=== PATIENT | female | born 1990 | race Caucasian/White ===

== ENCOUNTER → 2018-01-29 | Outpatient (CLI) | payer BC ==
[2018-01-29 13:41] LABS: ANION GAP 6 MEQ/L (8-16); BLOOD UREA NITROGEN 9 MG/DL (7-18); CALCIUM LEVEL 8.7 MG/DL (8.5-10.1); CARBON DIOXIDE LEVEL 28 MEQ/L (21-32); CHLORIDE LEVEL 108 MEQ/L (98-107); CHOLESTEROL LEVEL 139 MG/DL (<200); CHOLESTEROL RISK RATIO 2.278 (<5); FREE T4 0.84 NG/DL (0.76-1.46); GLOMERULAR FILTRATION RATE > 60.0 (>60); GLUCOSE, FASTING 87 MG/DL (70-100); HDL CHOLESTEROL 61 MG/DL (>40); LDL CHOLESTEROL 57.2 MG/DL (<100); NON-HDL-C 78 MG/DL; POTASSIUM SERUM 4.2 MEQ/L (3.5-5.1); SODIUM LEVEL 142 MEQ/L (136-145); TRIGLYCERIDES LEVEL 104 MG/DL (<150)
[2018-01-30 15:06] LABS: TISSUE TRANSGLUTAMINASE IgA <2 U/mL (0-3)
== END ==
LOC: M SMT 08:55
DX: L30.9 Dermatitis, unspecified (principal); Z13.1 Encounter for screening for diabetes mellitus
CPT/HCPCS: 84443

== ENCOUNTER → 2018-03-18 | Outpatient (CLI) | payer BC ==
[2018-03-18 20:13] LABS: FREE T4 1.13 NG/DL (0.76-1.46); THYROID STIMULATING HORMONE 0.796 uIU/ML (0.358-3.740)
[2018-03-18 22:26] LABS: CHLAMYDIA DNA AMPLIFICATION NEGATIVE (NEGATIVE); GC DNA AMPLIFICATION NEGATIVE (NEGATIVE)
[2018-03-19 10:53] LABS: THYROGLOBULIN ANTIBODY 292.5 U/ML (<60.0)
== END ==
LOC: M SMT 14:52
DX: Z12.4 Encounter for screening for malignant neoplasm of cervix (principal); Z11.3 Encounter for screening for infections with a predominantly sexual mode of transmission; E03.9 Hypothyroidism, unspecified
CPT/HCPCS: 84443

== ENCOUNTER → 2018-08-19 | Outpatient (REF) | payer BC | LOC: M LAB REF 16:48 | PROVIDERS: ATTEND Physician Assistant | DX: J02.9 Acute pharyngitis, unspecified (principal) ==

== ENCOUNTER → 2018-09-12 | Outpatient (CLI) | payer BC ==
--- NOTE | 2018-09-12 18:53 | REP ---
First trimester obstetric ultrasound for dating: There is an intrauterine gestational sac with a pole. heart rate is 132 beats per minute. pole crown-rump length is 0.7 cm. This corresponds to a gestational age of 6 weeks 4 days /ANIYA 05/04/2019 Gestational age by LMP is 6 weeks 5 days/ANIYA 05/03/2019. There is no subchorionic hematoma. Electronically Signed by Garrett Anderson MD 09/12/2018 06:45 P
== END ==
LOC: M RAD 16:40
PROVIDERS: ATTEND Nurse Practitioner Family
DX: Z32.01 Encounter for pregnancy test, result positive (principal); Z36.87 Encounter for antenatal screening for uncertain dates; Z3A.01 Less than 8 weeks gestation of pregnancy

== ENCOUNTER → 2019-09-08 | Outpatient (CLI) | payer BC ==
[2019-09-08 13:25] LABS: FREE T4 1.07 NG/DL (0.76-1.46); THYROID STIMULATING HORMONE 2.54 uIU/ML (0.358-3.740)
== END ==
LOC: M WUC 10:11
PROVIDERS: ATTEND Physician Assistant
DX: Z32.01 Encounter for pregnancy test, result positive (principal); Z3A.00 Weeks of gestation of pregnancy not specified; E06.3 Autoimmune thyroiditis

== ENCOUNTER → 2019-10-14 | Outpatient (REF) | payer BC ==
[2019-10-14 18:30] LABS: HEMATOCRIT 37.2 % (36.0-47.0); HEMOGLOBIN 12.6 g/dl (12.0-15.5); MEAN CORPUSCULAR HEMOGLOBIN 32.1 pg (27.0-33.0); MEAN CORPUSCULAR HGB CONC 33.9 g/dl (32.0-36.5); MEAN CORPUSCULAR VOLUME 94.9 fl (80.0-96.0); PLATELET COUNT, AUTOMATED 241 10^3/uL (150-450); RED BLOOD COUNT 3.92 10^6/uL (4.00-5.40); WHITE BLOOD COUNT 8.7 10^3/uL (4.0-10.0)
[2019-10-14 19:09] LABS: RUBELLA IgG QUALITATIVE IMMUNE (IMMUNE)
[2019-10-14 19:38] LABS: HIV 1&2 SCREEN CENTAUR NEGATIVE (NEGATIVE)
[2019-10-14 20:13] LABS: CHLAMYDIA DNA AMPLIFICATION NEGATIVE (NEGATIVE); GC DNA AMPLIFICATION NEGATIVE (NEGATIVE)
[2019-10-16 08:31] LABS: HEPATITIS B SURFACE ANTIGEN NEGATIVE (NEGATIVE)
[2019-10-16 09:00] LABS: HEPATITIS C VIRUS ABY INDEX 0.1 INDEX (<0.8)
== END ==
LOC: M PLALAB 13:54
PROVIDERS: ATTEND Advanced Practice Midwife
DX: Z34.01 Encounter for supervision of normal first pregnancy, first trimester (principal); O99.280 Endocrine, nutritional and metabolic diseases complicating pregnancy, unspecified trimester; Z3A.00 Weeks of gestation of pregnancy not specified

== ENCOUNTER → 2019-11-23 | Outpatient (REF) | payer BC | LOC: M PLALAB 11:23 | PROVIDERS: ATTEND Advanced Practice Midwife | DX: Z01.89 Encounter for other specified special examinations (principal) ==

== ENCOUNTER → 2019-12-07 | Outpatient (CLI) | payer BC ==
--- NOTE | 2019-12-08 02:48 | REP ---
Clinical: Anatomical evaluation. Comparison: None . Findings: Examination demonstrates a single live intrauterine in variable presentation. motion is identified by technologist. Placenta is noted posterior and grade I without evidence for placenta previa or abruption. Amniotic fluid volume is normal. Cervix measures 3.9 cm in length and appears closed. No evidence for nuchal cord. Gestational age by LMP 18 weeks 4 days with ANIYA 05/05/2020 . Gestational age by current measurements 17 weeks 6 days with ANIYA 05/10/2020 . FHR equals 152 beats per minute. BPD 4.0 cm 18 weeks 0 days HC 14.8 cm 17 weeks 6 days AC 11.7 cm 17 weeks 3 days FL 2.7 cm 18 weeks 2 days HL 2.7 cm 18 weeks 4 days HC/AC ratio 1.26 Estimated weight 213 grams ( 20th percentile). Anatomical assessment demonstrates normal structures including cranium, choroid plexus, cavum, cerebellum/posterior fossa, facial features, lungs, four-chamber heart/ventricular outflow tracts, diaphragm, stomach, cord insertion/three-vessel cord, kidneys/bladder, spine, and extremities. Impression: Single live intrauterine in variable presentation demonstrating appropriate estimated weight/growth. Anatomical assessment is complete and normal.
== END ==
LOC: M WHC 14:51
PROVIDERS: ATTEND Advanced Practice Midwife
DX: O99.280 Endocrine, nutritional and metabolic diseases complicating pregnancy, unspecified trimester (principal); Z3A.17 17 weeks gestation of pregnancy

== ENCOUNTER → 2019-12-11 | Outpatient (REF) | payer BC ==
[2019-12-11 17:33] LABS: FREE T4 0.94 NG/DL (0.76-1.46); THYROID STIMULATING HORMONE 4.69 uIU/ML (0.358-3.740)
== END ==
LOC: M PLALAB 14:57
PROVIDERS: ATTEND Specialist
DX: O99.280 Endocrine, nutritional and metabolic diseases complicating pregnancy, unspecified trimester (principal)

== ENCOUNTER → 2020-02-09 | Outpatient (REF) | payer BC ==
[~2020-02-09] MED LIST: ACET-683 PO; IBUP80TA PO; LEVO100T5 PO; PRENTAB9 PO
[2020-03-07 14:21] LABS: HEMATOCRIT 33.4 % (36.0-47.0); HEMOGLOBIN 10.8 g/dl (12.0-15.5); MEAN CORPUSCULAR HGB CONC 32.3 g/dl (32.0-36.5); MEAN CORPUSCULAR VOLUME 98.8 fl (80.0-96.0); PLATELET COUNT, AUTOMATED 232 10^3/uL (150-450); RED BLOOD COUNT 3.38 10^6/uL (4.00-5.40); WHITE BLOOD COUNT 10.5 10^3/uL (4.0-10.0)
[2020-03-23 13:49] LABS: FREE T4 0.91 NG/DL (0.76-1.46); THYROID STIMULATING HORMONE 3.09 uIU/ML (0.358-3.740)
== END ==
LOC: M SFHCWAGY 17:01
PROVIDERS: ATTEND Advanced Practice Midwife
DX: O99.280 Endocrine, nutritional and metabolic diseases complicating pregnancy, unspecified trimester (principal); Z3A.00 Weeks of gestation of pregnancy not specified

== ENCOUNTER → 2020-04-07 | Outpatient (REF) | payer BC | LOC: M SFHCWAGY 17:07 | PROVIDERS: ATTEND Advanced Practice Midwife | DX: O99.283 Endocrine, nutritional and metabolic diseases complicating pregnancy, third trimester (principal) ==

== ENCOUNTER → 2020-04-07 | Outpatient (REF) | payer BC ==
[2020-04-08 10:36] LABS: HIV 1&2 SCREEN CENTAUR NEGATIVE (NEGATIVE)
== END ==
LOC: M PLALAB 15:33
PROVIDERS: ATTEND Advanced Practice Midwife
DX: O99.283 Endocrine, nutritional and metabolic diseases complicating pregnancy, third trimester (principal)

== ENCOUNTER 2020-05-10 23:07 | Inpatient (IN) | payer BC ==
[~2020-05-10] VITALS: Ht 165.1 cm; Wt 71.5 kg
[2020-05-10 23:28] VITALS: BP 108/73
[2020-05-10 23:31] VITALS: BP 103/70
[2020-05-10] MEDS ORDERED: LEVO100T5 PO (23:38)
[2020-05-10] MEDS ORDERED: PRENTAB9 PO (23:38)
[2020-05-11] VITALS (41 sets, daily range): BP systolic 88–120; BP diastolic 50–78
[2020-05-11 02:32] LABS: HEMATOCRIT 36.2 % (36.0-47.0); HEMOGLOBIN 11.9 g/dl (12.0-15.5); MEAN CORPUSCULAR HEMOGLOBIN 30.8 pg (27.0-33.0); MEAN CORPUSCULAR HGB CONC 32.9 g/dl (32.0-36.5); MEAN CORPUSCULAR VOLUME 93.8 fl (80.0-96.0); PLATELET COUNT, AUTOMATED 204 10^3/uL (150-450); RED BLOOD COUNT 3.86 10^6/uL (4.00-5.40); WHITE BLOOD COUNT 16.5 10^3/uL (4.0-10.0)
[2020-05-11] MEDS ORDERED: FENTANYL 2MCG/ML ROPIVACAINE 0.2% IN 0.9% NACL 100ML IVBAG As Ordered ONE (03:11)
--- NOTE | 2020-05-11 03:42 | HPEPDOC ---
Obstetrical History & Physical General Date of Admission May 11, 2020 at 02:03 History of Present Illness 29yo at 40w6d presents wtih c/o ctx. reports active movement. No vaginal bleeding or LOF. Chief Complaint: Contractions, term Information Provided By: Patient Age: 29 : 4 Livin Care Care: Good Care Dating Final EDC: May 05, 2020 Final EDC by: LMP EGA at Admission: 40 Past Medical History Past Obstetrical History : Past Obstetrical History: Primgravida [employer] History: No pertinent history, Theraputic Past Medical History Surgical History: Dilatation and Curettage Family History Significant Family History: Cancer, Diabetes Social History Marital Status: Psychosocial History: No pertinent psych hx * Smoker: non-smoker Alcohol: Denies Allergies Uncoded Allergies: OKRA (Allergy, Severe, SOB, 05/10/20) Medications Scheduled Levothyroxine Sodium (Levothyroxine Sodium) 100 Mcg Tablet, 100 MCG PO DAILY No.137/Iron/Folic Acd ( Vitamin Tablet) 1 Each Tablet, 1 TAB PO DAILY Physical Examination Physical Examination GENERAL: Alert and oriented times three. BREAST: . ABDOMEN: Gravid and non-tender to touch. FETUS: Is vertex (VTX) by sterile vaginal examination (SVE), fetus is vertex (VTX) by Clarke. HEART RATE: Regular rate and rhythm. LUNGS: Clear to auscultation (CTA). Vital Signs/I&O Vital Signs Date Time Temp Pulse Resp B/P (MAP) Pulse Ox O2 Delivery O2 Flow Rate FiO2 05/11/20 03:02 85 16 108/73 (85) 05/10/20 23:31 98.2 Laboratory Data 24H LABS Laboratory Tests 2 05/11/20 02:05: Serology Scanned Report Hepatitis B Testing 05/11/20 02:24: Nucleated Red Blood Cells % (auto) 0.0 CBC/BMP Laboratory Tests 05/11/20 02:24 Pertinent Laboratoy Data Blood Type: O+ RBC Antibody Screen: Negative HIV: Negative Hepatitis B: Negative Hepatitis C: Negative Rapid Plasma Reagin: Nonreactive Rubella: Immune Chlamydia/Gonorrhea: Negative Group B Streptococcus: Negative Vaginal Examination Dilation: 4 cm Effacement: 70% Station: -2 Assessment Variability: Moderate Accelerations: Positive Tocometer Frequency: regular, every 2-5 min. Assessment/Plan Assessment 29yo at 40w6d in active labor reassuring status Plan Admit and orient. Obstetrics Gynecology Md and consent. Diet: reg Group B Streptococcus (GBS) negative. Labs and intravenous (IV) per unit protocol. Counseled on Pitocin and induction of labor (IOL). Anticipate normal spontaneous delivery (). C-S as appropriate. PILLO UNDERWOOD MD. May 11, 2020 03:42
[2020-05-11] MEDS ORDERED: EPIDURAL/PCA KEYS XX PRN (05:15)
[2020-05-11] MEDS ORDERED: REFRIGERATOR IV KEYS XX PRN (05:15)
[2020-05-11] MEDS ORDERED: EPIDURAL COMMENT XX SCH (05:15)
[2020-05-11] MEDS ORDERED: diphenhydrAMINE 50MG/ML VIAL (J1200) IV PRN (05:15)
[2020-05-11] MEDS ORDERED: LACTATED RINGER'S 1000 ML IV PRN (05:15)
[2020-05-11] MEDS ORDERED: ONDANSETRON 4MG/2ML VIAL IV PRN (05:15)
[2020-05-11] MEDS ORDERED: ePHEDrine SULFATE 25 MG/5 ML(5MG/ML) SYRINGE IV PRN (05:15)
[2020-05-11] MEDS ORDERED: NALOXONE INJ 0.4MG/1ML VIAL (J2310 PER 1MG) IV PRN (05:15)
[2020-05-11] MEDS ORDERED: LR 1,000 ML IV SCH (05:39)
[2020-05-11] MEDS: FENTANYL/ROPIVACAINE/NACL BAG 100 ML EPIDURAL SCH ×2 (06:13→11:29)
--- NOTE | 2020-05-11 08:34 | IPNPDOC ---
Obstetrical Progress Note Date of Service May 11, 2020 Subjective Patient denies pain or pressure. Objective AROM for moderate amount of clear fluid mixed with bloody show. Vital Signs Date Time Temp Pulse Resp B/P (MAP) Pulse Ox O2 Delivery O2 Flow Rate FiO2 05/11/20 06:44 85 16 98/58 (71) 05/10/20 23:31 98.2 Assessment Heart Rate (FHR): 130 Variability: Moderate Accelerations: Positive Decelerations: None Heart Rate Tracing: Category I Tocometer Contractions: Yes Frequency: irregular, other (5-6 minutes) Duration: greater than 60 seconds Strength: palpated as moderate Sterile Vaginal Examination Dilation: 5 cm Effacement (%): 90% Station: -1 Cervical Consistency: Soft Cervical Position: Anterior Postion/Presentation: Cephalic presentation Assessment and Plan Age: 29 : 1 Term: 0 Pre-term: 0 Abortions: 0 Livin EGA at Admission: 40.6 Status: Reassuring Group B Streptococcus: Negative Anticipate: Vaginal Delivery Additional Comments Plan to start Pitocin for inadequate contraction pattern. Continue with continuous EFM. Continue with Epidural for pain management. AUDREY TO CNM May 11, 2020 08:34
[2020-05-11] MEDS: LEVOTHYROXINE 100MCG TABLET (0.1MG) PO SCH (08:58)
[2020-05-11] MEDS ORDERED: OXYTOCIN DRIP 30 UNITS in IV 1 EA IV SCH ×2 (09:00→13:33)
--- NOTE | 2020-05-11 13:31 | DNPDOC ---
[facility] Delivery Note Delivery Note DATE OF DELIVERY: 05/11/2020 @1259 PREDELIVERY DIAGNOSIS: 40-6/7 weeks' gestation and labor. POST DELIVERY DIAGNOSIS: Delivered. PROCEDURE: Spontaneous vaginal delivery. NEGOTIATIONS DIRECTOR: Audrey Hikcs CNM, LOUIE/ AILEEN Cui ANESTHESIA: Epidural. ESTIMATED BLOOD LOSS: 300 mL. FINDINGS: 7 pound 3 ounce, 3270g Female , Score 7/9, loose nuchal cord times 1, reduced. DELIVERY SUMMARY: Patient is a 29-year-old 4 now para 1-0-3-1 who was admitted to labor and delivery in early labor. She continued to labor and got an epidural for pain management. AROM for clear fluid at 0824 and Pitocin was started for augmentation. She reached full dilation at 1225 and began pushing. head was delivered in the ENRIQUETA position with restitution to LOT. A loose nuchal cord x1 was reduced. The anterior shoulder delivered with ease and corpus followed. Viable female was placed skin to skin on maternal abdomen, delayed cord clamping was done for first minute then cord clamped x2 and cut by SNM, FOB declined. Intact placenta delivered spontaneously at 1303. Fundal massage and IV Pitocin bolus started, fundus firmed at umbilicus. Vagina, cervix, and perineum was examined and a 1st degree perineal tear was repaired with 3-0 Vicryl Rapide. Parents are planning to name infant "Vandana" and breastfeed . Mother and left in stable condition. All counts of instruments and sponges are correct. AUDREY HICSK CNM May 11, 2020 13:31
[2020-05-11] MEDS ORDERED: MEASLES,MUMPS,RUBELLA VACCINE INJ (MMR-II) (90707) SC SCH (13:45)
[2020-05-11] MEDS ORDERED: METHYLERGONOVINE MALEATE 0.2 MG TAB PO PRN (13:45)
[2020-05-11] MEDS ORDERED: DIBUCAINE 1% OINTMENT 30GM TOP PRN (13:45)
[2020-05-11] MEDS ORDERED: ACETAMINOPHEN TAB 650MG DOSE (2X325MG) PO PRN (13:45)
[2020-05-11] MEDS ORDERED: DOCUSATE SODIUM 100 MG CAP PO PRN (13:45)
[2020-05-11] MEDS ORDERED: RHOGAM 300 MCG (1500 IU) INJ (J2790) IM SCH (13:45)
[2020-05-11] MEDS ORDERED: ANUSOL HC CREAM 30GM TOP PRN (13:45)
[2020-05-11] MEDS: IBUPROFEN 600MG TAB PO PRN ×2 (14:08→20:41)
[2020-05-11] MEDS: ACETAMINOPHEN 500 MG TAB PO PRN (23:56)
[2020-05-12] MEDS: IBUPROFEN 600MG TAB PO PRN (03:44)
[2020-05-12 06:00] VITALS: BP 104/57
[2020-05-12] MEDS: LEVOTHYROXINE 100MCG TABLET (0.1MG) PO SCH (06:26)
--- NOTE | 2020-05-12 07:25 | IPNPDOC ---
Progress Note Date of Service: May 12, 2020 Day#: 1 Progress Note SUBJECT: Destiny is a 29-year-old 4 now Para 1-0-3-1 status post uncom plicated spontaneous vaginal delivery at 40-6/7 weeks', with post perineal 1st degree laceration and repair, doing well day # 1. She has been ambulating, voiding spontaneously without issue and tolerating regular diet. Passing flatus without difficulty. Breast feeding without issue. Reports lochia is like a normal period. Patient is ambulating well. Reports some cramping with , pain well controlled with Tylenol and Motrin. Desires discharge home today. OBJECTIVE: VITAL SIGNS: Within normal limits, afebrile. Alert and oriented times three. Respiratory: Regular rate, no accessory muscle use. Abdomen: Fundus firm at U-1. Soft, NTTP. Minimal lochia. ASSESSMENT: Day 1 PLAN: 1. Discharge to home today, pending discharge. 2. Tylenol and Motrin for pain. 3. Encourage breast feeding and ambulation. 4. Pelvic rest for 6 weeks. 5. Routine PP visit in 6 weeks in clinic. 6. Discussed return precautions at length. VS, I&O, 24H, Fishbone Vital Signs/I&O Vital Signs Date Time Temp Pulse Resp B/P (MAP) Pulse Ox O2 Delivery O2 Flow Rate FiO2 05/12/20 06:00 97.8 80 17 104/57 (73) 99 Room Air I&O- Last 24 Hours up to 6 AM 05/12/20 06:00 Intake Total 5040 ml Output Total 4800 ml Balance 240 ml AUDREY TO CNM May 12, 2020 07:25
[2020-05-12] MEDS: PRENATAL VITAMINS CHEWABLE TABLET PO SCH (07:53)
[2020-05-12] MEDS ORDERED: ACET-683 PO (08:21)
[2020-05-12] MEDS ORDERED: IBUP80TA PO (08:21)
[2020-05-12 08:50] VITALS: BP 104/57
[2020-05-12] MEDS: ACETAMINOPHEN 500 MG TAB PO PRN ×2 (10:23→22:35)
[2020-05-12] MEDS: IBUPROFEN 800 MG TAB PO PRN (17:06)
[2020-05-12 17:47] VITALS: BP 119/67
[2020-05-13] MEDS: LEVOTHYROXINE 100MCG TABLET (0.1MG) PO SCH (05:39)
[2020-05-13 06:00] VITALS: BP 112/67
[2020-05-13] MEDS: PRENATAL VITAMINS CHEWABLE TABLET PO SCH (08:28)
[2020-05-13] MEDS: IBUPROFEN 800 MG TAB PO PRN (08:28)
== END 2020-05-13 11:25 | disposition home or self-care (01) | DRG 560 ==
LOC: M LDO 23:07 → M LDI 05-11 02:03 → M OBS 05-11 16:35
PROVIDERS: ADMIT Obstetrics & Gynecology; ATTEND Obstetrics & Gynecology
PROC: 10E0XZZ Delivery of Products of Conception, External Approach (ICD-10-PCS; principal; 2020-05-11)
PROC: 10907ZC Drainage of Amniotic Fluid, Therapeutic from Products of Conception, Via Natural or Artificial Opening (ICD-10-PCS; 2020-05-11)
PROC: 0HQ9XZZ Repair Perineum Skin, External Approach (ICD-10-PCS; 2020-05-11)
DX: O48.0 Post-term pregnancy (principal); E03.9 Hypothyroidism, unspecified; Z37.0 Single live birth; Z3A.40 40 weeks gestation of pregnancy; O69.81X0 Labor and delivery complicated by cord around neck, without compression, not applicable or unspecified; O70.0 First degree perineal laceration during delivery; O99.284 Endocrine, nutritional and metabolic diseases complicating childbirth

== ENCOUNTER → 2020-07-15 | Outpatient (REF) | payer BC ==
[2020-07-15 13:27] LABS: FREE T4 1.27 NG/DL (0.76-1.46); THYROID STIMULATING HORMONE 0.185 uIU/ML (0.358-3.740)
== END ==
LOC: M PLALAB 11:00
PROVIDERS: ATTEND Advanced Practice Midwife
DX: E06.3 Autoimmune thyroiditis (principal)

== ENCOUNTER → 2020-10-19 | Outpatient (REF) | payer BC ==
[2020-10-19 14:04] LABS: FREE T4 0.6 NG/DL (0.76-1.46); THYROID STIMULATING HORMONE 71.8 uIU/ML (0.358-3.740)
== END ==
LOC: M PLALAB 08:03
PROVIDERS: ATTEND Advanced Practice Midwife
DX: E06.3 Autoimmune thyroiditis (principal)

== ENCOUNTER → 2020-10-21 | Outpatient (REF) | payer BC | LOC: M SFHCWAGY 17:27 | PROVIDERS: ATTEND Advanced Practice Midwife | DX: Z12.4 Encounter for screening for malignant neoplasm of cervix (principal) ==

== ENCOUNTER → 2020-11-04 | Outpatient (CLI) | payer BC ==
--- NOTE | 2020-11-04 16:37 | REP ---
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 COMPARISON: None FINDINGS: The right lobe of the thyroid gland measures 4.5 x 1.4 x 1.5 cm and left lobe measures 4.1 x 1.5 x 1.6 cm. The thyroid parenchyma compared is heterogenous. The isthmus measures 5 mm. There are no discrete cystic or solid masses. IMPRESSION: As above <Electronically signed by Yg Trujillo > 11/04/20 [id number]
== END ==
LOC: M RAD 16:08
PROVIDERS: ATTEND Physician Assistant
DX: E06.3 Autoimmune thyroiditis (principal)

== ENCOUNTER → 2020-12-02 | Outpatient (REF) | payer BC ==
[2020-12-02 12:17] LABS: FREE T4 1.05 NG/DL (0.76-1.46); THYROID STIMULATING HORMONE 6.09 uIU/ML (0.358-3.740)
== END ==
LOC: M PLALAB 09:44
PROVIDERS: ATTEND Physician Assistant
DX: E06.3 Autoimmune thyroiditis (principal)

== ENCOUNTER → 2021-01-10 | Outpatient (CLI) | payer BC ==
[2021-01-10 10:51] LABS: THYROID STIMULATING HORMONE 4.82 uIU/ML (0.358-3.740)
== END ==
LOC: M PLALAB 08:14
PROVIDERS: ATTEND Physician Assistant
DX: E06.3 Autoimmune thyroiditis (principal)

== ENCOUNTER → 2021-01-24 | Outpatient (REF) | payer BC | LOC: M LAB REF 17:44 | PROVIDERS: ATTEND Physician Assistant | DX: R30.0 Dysuria (principal) ==

== ENCOUNTER → 2021-03-06 | Outpatient (REF) | payer BC | LOC: M LAB REF 19:13 | PROVIDERS: ATTEND Physician Assistant | DX: Z20.828 Contact with and (suspected) exposure to other viral communicable diseases (principal); Z11.59 Encounter for screening for other viral diseases ==

== ENCOUNTER → 2021-03-22 | Outpatient (CLI) | payer BC ==
[2021-03-22 12:21] LABS: FREE T4 1.11 NG/DL (0.76-1.46); THYROID STIMULATING HORMONE 2.14 uIU/ML (0.358-3.740)
== END ==
LOC: M PLALAB 08:04
PROVIDERS: ATTEND Physician Assistant
DX: Z00.01 Encounter for general adult medical examination with abnormal findings (principal)

== ENCOUNTER → 2021-11-02 | Outpatient (REF) | payer BC | LOC: M LAB REF 18:49 | PROVIDERS: ATTEND Nurse Practitioner Adult Health | DX: J02.9 Acute pharyngitis, unspecified (principal) ==

== ENCOUNTER → 2022-01-02 | Outpatient (CLI) | payer BC ==
[2022-01-02 10:51] LABS: BASO % 0.3 % (0.0-1.0); EOS # 0.1 10^3/uL (0.0-0.5); EOS % 1.2 % (0.0-3.0); HEMATOCRIT 35.4 % (36.0-47.0); HEMOGLOBIN 11.8 g/dl (12.0-15.5); LYMPH # 1.5 10^3/uL (1.5-5.0); LYMPH % 19.1 % (24.0-44.0); MEAN CORPUSCULAR HEMOGLOBIN 31.2 pg (27.0-33.0); MEAN CORPUSCULAR HGB CONC 33.3 g/dl (32.0-36.5); MEAN CORPUSCULAR VOLUME 93.7 fl (80.0-96.0); MONO # 0.4 10^3/uL (0.0-0.8); MONO % 5.3 % (2.0-8.0); NEUTROPHILS # 5.7 10^3/uL (1.5-8.5); NEUTROPHILS % 73.8 % (36.0-66.0); PLATELET COUNT, AUTOMATED 240 10^3/uL (150-450); RED BLOOD COUNT 3.78 10^6/uL (4.00-5.40); WHITE BLOOD COUNT 7.7 10^3/uL (4.0-10.0)
[2022-01-02 12:17] LABS: HEPATITIS C VIRUS ABY INDEX 0.1 INDEX (<0.8); HIV 1&2 SCREEN CENTAUR NEGATIVE (NEGATIVE)
[2022-01-02 13:12] LABS: GC DNA AMPLIFICATION NEGATIVE (NEGATIVE)
== END ==
LOC: M PLALAB 08:05
PROVIDERS: ATTEND Specialist
DX: Z34.81 Encounter for supervision of other normal pregnancy, first trimester (principal); Z3A.00 Weeks of gestation of pregnancy not specified

== ENCOUNTER → 2022-01-18 | Outpatient (CLI) | payer BC ==
[2022-01-18 17:54] LABS: FREE T4 0.9 NG/DL (0.76-1.46); THYROID STIMULATING HORMONE 7.29 uIU/ML (0.358-3.740)
== END ==
LOC: M PLALAB 14:54
PROVIDERS: ATTEND Obstetrics & Gynecology
DX: O99.281 Endocrine, nutritional and metabolic diseases complicating pregnancy, first trimester (principal); Z3A.00 Weeks of gestation of pregnancy not specified

== ENCOUNTER → 2022-03-23 | Outpatient (CLI) | payer BC | LOC: M WHC 14:25 | PROVIDERS: ATTEND Specialist | DX: Z34.82 Encounter for supervision of other normal pregnancy, second trimester (principal); Z3A.21 21 weeks gestation of pregnancy ==

== ENCOUNTER → 2022-04-10 | Outpatient (CLI) | payer BC ==
[2022-04-10 19:34] LABS: FREE T4 0.99 NG/DL (0.76-1.46); THYROID STIMULATING HORMONE 1.23 uIU/ML (0.358-3.740)
== END ==
LOC: M PLALAB 15:58
PROVIDERS: ATTEND Specialist
DX: E03.9 Hypothyroidism, unspecified (principal)

== ENCOUNTER → 2022-05-08 | Outpatient (CLI) | payer BC ==
[2022-05-08 17:38] LABS: HEMATOCRIT 30.6 % (36.0-47.0); HEMOGLOBIN 10.1 g/dl (12.0-15.5); MEAN CORPUSCULAR HEMOGLOBIN 31.6 pg (27.0-33.0); MEAN CORPUSCULAR VOLUME 95.6 fl (80.0-96.0); PLATELET COUNT, AUTOMATED 220 10^3/uL (150-450); WHITE BLOOD COUNT 8.7 10^3/uL (4.0-10.0)
[2022-05-08 23:31] LABS: GC DNA AMPLIFICATION NEGATIVE (NEGATIVE)
== END ==
LOC: M PLALAB 14:38
PROVIDERS: ATTEND Obstetrics & Gynecology
DX: Z34.92 Encounter for supervision of normal pregnancy, unspecified, second trimester (principal); Z3A.24 24 weeks gestation of pregnancy

== ENCOUNTER → 2022-06-28 | Outpatient (REF) | payer BC | LOC: M SFHCWAGY 17:12 | PROVIDERS: ATTEND Specialist | DX: Z34.83 Encounter for supervision of other normal pregnancy, third trimester (principal) ==

== ENCOUNTER 2022-07-10 10:38 | Outpatient (CLI) | payer BC ==
[~2022-07-10] VITALS: Ht 165.1 cm; Wt 79.3 kg
[2022-07-10] VITALS (17 sets, daily range): BP systolic 111–169; BP diastolic 65–86
[2022-07-10] MEDS ORDERED: COLA100C5 PO (11:04)
[2022-07-10] MEDS ORDERED: LEVO175T2 PO (11:04)
[2022-07-10] MEDS ORDERED: IRON1TAB2 PO (11:04)
[2022-07-10] MEDS ORDERED: LR 1,000 ML IV ONE (11:20)
[2022-07-10] MEDS ORDERED: LR 1,000 ML IV SCH (11:20)
[2022-07-10 11:48] LABS: HEMATOCRIT 32.8 % (36.0-47.0); HEMOGLOBIN 10.8 g/dl (12.0-15.5); MEAN CORPUSCULAR HEMOGLOBIN 30.8 pg (27.0-33.0); MEAN CORPUSCULAR HGB CONC 32.9 g/dl (32.0-36.5); MEAN CORPUSCULAR VOLUME 93.4 fl (80.0-96.0); PLATELET COUNT, AUTOMATED 189 10^3/uL (150-450); RED BLOOD COUNT 3.51 10^6/uL (4.00-5.40); WHITE BLOOD COUNT 8.8 10^3/uL (4.0-10.0)
[2022-07-10] MEDS ORDERED: NALOXONE INJ 0.4MG/1ML VIAL IV PRN (12:25)
[2022-07-10] MEDS ORDERED: ONDANSETRON 4MG 2ML VIAL IV PRN (12:25)
[2022-07-10] MEDS ORDERED: LR 500 ML IV PRN (12:25)
[2022-07-10] MEDS ORDERED: EPIDURAL/PCA KEYS XX PRN (12:25)
[2022-07-10] MEDS ORDERED: diphenhydrAMINE 50MG/ML VIAL IV PRN (12:25)
[2022-07-10] MEDS ORDERED: FENTANYL/ROPIVACAINE/NACL BAG 100 ML EPIDURAL SCH (12:25)
[2022-07-10] MEDS ORDERED: ePHEDrine SULFATE 25 MG/5 ML(5MG/ML) SYRINGE IVP PRN (12:25)
[2022-07-10] MEDS ORDERED: TERBUTALINE SULFATE 1 MG/ML VIAL (J3105) SC ONE (13:00)
== END 2022-07-10 15:56 | disposition home or self-care (01) ==
LOC: M LDO 10:38
PROVIDERS: ATTEND Obstetrics & Gynecology
DX: O32.1XX9 Maternal care for breech presentation, other fetus (principal); Z3A.37 37 weeks gestation of pregnancy
CPT/HCPCS: 59025; 59412; 76815; 85027; 86780; 86850; 86900; 86901; 87635; G0378; G0463; J3105

== ENCOUNTER 2022-07-13 15:52 | Outpatient (CLI) | payer BC ==
[~2022-07-13] VITALS: Ht 165.1 cm; Wt 81.8 kg
[~2022-07-13 15:52] MED LIST changes: +COLA100C5 PO; +IRON1TAB2 PO; +LEVO175T2 PO
[2022-07-13] MEDS ORDERED: COLA100C5 PO (16:05)
[2022-07-13] MEDS ORDERED: FERR324T21 PO (16:05)
[2022-07-13 16:07] VITALS: BP 115/74
[2022-07-13] MEDS ORDERED: LR 1,000 ML IV ONE (17:15)
[2022-07-13 17:19] VITALS: BP 139/89
[2022-07-13 17:40] VITALS: BP 127/77
[2022-07-13] MEDS ORDERED: HOME MED LIST COMPLETE! XX SCH (17:45)
[2022-07-13] MEDS ORDERED: LR 1,000 ML IV SCH (18:15)
[2022-07-13 18:55] VITALS: BP 119/70
== END 2022-07-13 19:15 | disposition home or self-care (01) ==
LOC: M LDO 15:52
PROVIDERS: ATTEND Advanced Practice Midwife
DX: O32.1XX9 Maternal care for breech presentation, other fetus (principal); Z3A.37 37 weeks gestation of pregnancy
CPT/HCPCS: 59025; 76815; 76819; 76820; G0378; G0463

== ENCOUNTER 2022-07-20 15:08 | Inpatient (IN) | payer BC ==
[~2022-07-20] VITALS: Ht 165.1 cm; Wt 82.4 kg
[2022-07-20] VITALS (21 sets, daily range): BP systolic 109–137; BP diastolic 58–88
[~2022-07-20 15:08] MED LIST changes: +FERR324T21 PO
[2022-07-20] MEDS ORDERED: HOME MED LIST COMPLETE! XX SCH (15:30)
[2022-07-20 17:05] LABS: HEMATOCRIT 32.9 % (36.0-47.0); HEMOGLOBIN 10.9 g/dl (12.0-15.5); MEAN CORPUSCULAR HEMOGLOBIN 30.9 pg (27.0-33.0); MEAN CORPUSCULAR HGB CONC 33.1 g/dl (32.0-36.5); MEAN CORPUSCULAR VOLUME 93.2 fl (80.0-96.0); PLATELET COUNT, AUTOMATED 192 10^3/uL (150-450); RED BLOOD COUNT 3.53 10^6/uL (4.00-5.40); WHITE BLOOD COUNT 9.9 10^3/uL (4.0-10.0)
[2022-07-20] MEDS ORDERED: OXYTOCIN DRIP 30 UNITS in IV 1 EA IV SCH (17:10)
[2022-07-20] MEDS ORDERED: CARBOPROST TROMETHAMINE 250 MCG/ML AMP IM PRN (17:10)
[2022-07-20] MEDS ORDERED: METHYLERGONOVINE MALEATE 0.2 MG/ML VIAL (J2210) IM PRN (17:10)
[2022-07-20] MEDS ORDERED: LIDOCAINE 1% MDV 20ML VIAL INFIL PRN (17:10)
[2022-07-20] MEDS ORDERED: OXYTOCIN DRIP 30 UNITS in IV 1 EA IV PRN (17:10)
[2022-07-20] MEDS ORDERED: TRANEXAMIC ACID INJection 1,000 MG in NS 100 ML IV PRN (17:10)
[2022-07-20] MEDS: LR 1,000 ML IV SCH (18:06)
[2022-07-20] MEDS ORDERED: LR 500 ML IV PRN (22:35)
[2022-07-20] MEDS ORDERED: NALOXONE INJ 0.4MG/1ML VIAL IV PRN (22:35)
[2022-07-20] MEDS ORDERED: EPIDURAL/PCA KEYS XX PRN (22:35)
[2022-07-20] MEDS ORDERED: diphenhydrAMINE 50MG/ML VIAL IV PRN (22:35)
[2022-07-20] MEDS ORDERED: ONDANSETRON 4MG 2ML VIAL IV PRN (22:35)
[2022-07-20] MEDS ORDERED: FENTANYL/ROPIVACAINE/NACL BAG 100 ML EPIDURAL SCH (22:35)
[2022-07-20] MEDS ORDERED: ePHEDrine SULFATE 25 MG/5 ML(5MG/ML) SYRINGE IVP PRN (22:35)
[2022-07-21] VITALS (17 sets, daily range): BP systolic 96–128; BP diastolic 50–92
[2022-07-21] MEDS: LR 1,000 ML IV SCH (06:03)
[2022-07-21] MEDS ORDERED: DIBUCAINE 1% OINTMENT 30GM TOP PRN (06:45)
[2022-07-21] MEDS ORDERED: METHYLERGONOVINE MALEATE 0.2 MG TAB PO PRN (06:45)
[2022-07-21] MEDS ORDERED: ONDANSETRON 4MG 2ML VIAL IV PRN (06:45)
[2022-07-21] MEDS ORDERED: RHOGAM 300MCG (1500IU) INJ IM SCH (06:45)
[2022-07-21] MEDS: LEVOTHYROXINE 150MCG TABLET (0.15MG) PO SCH (07:39)
[2022-07-21] MEDS: LEVOTHYROXINE 25MCG TABLET (0.025MG) PO SCH (07:39)
[2022-07-21] MEDS: ACETAMINOPHEN 500 MG TAB PO PRN ×3 (07:47→23:51)
[2022-07-21] MEDS: DOCUSATE SODIUM 100MG CAPSULE PO SCH ×2 (09:00→20:06)
[2022-07-21] MEDS: PRENATAL VITAMINS CHEWABLE TABLET PO SCH (09:00)
[2022-07-21] MEDS: FERROUS GLUCONATE 324 MG TAB PO SCH ×2 (09:00→20:06)
[2022-07-21] MEDS: IBUPROFEN 600MG TAB PO PRN ×2 (11:25→20:12)
[2022-07-21] MEDS ORDERED: SLF 3 ML SYR IV SCH (22:00)
[2022-07-22 06:00] VITALS: BP 98/62
[2022-07-22] MEDS: LEVOTHYROXINE 150MCG TABLET (0.15MG) PO SCH (06:15)
[2022-07-22] MEDS: LEVOTHYROXINE 25MCG TABLET (0.025MG) PO SCH (06:15)
[2022-07-22] MEDS: PRENATAL VITAMINS CHEWABLE TABLET PO SCH (08:25)
[2022-07-22] MEDS: DOCUSATE SODIUM 100MG CAPSULE PO SCH (08:26)
[2022-07-22] MEDS: FERROUS GLUCONATE 324 MG TAB PO SCH (08:26)
[2022-07-22] MEDS: IBUPROFEN 600MG TAB PO PRN (08:26)
[2022-07-22] MEDS ORDERED: ACET-683 PO (10:56)
[2022-07-22] MEDS ORDERED: COLA100C5 PO (10:56)
[2022-07-22] MEDS ORDERED: IBUP-1022 PO (10:56)
[2022-07-22] MEDS: ACETAMINOPHEN 500 MG TAB PO PRN (12:14)
[2022-07-23] MEDS ORDERED: MEASLES,MUMPS,RUBELLA VACCINE INJ (MMR-II) SC.IMMUN ONE (09:00)
== END 2022-07-22 17:45 | disposition home or self-care (01) | DRG 560 ==
LOC: M LDI 15:08 → M OBS 07-21 09:11
PROVIDERS: ADMIT Advanced Practice Midwife; ATTEND Advanced Practice Midwife
PROC: 10E0XZZ Delivery of Products of Conception, External Approach (ICD-10-PCS; principal; 2022-07-21)
PROC: 10907ZC Drainage of Amniotic Fluid, Therapeutic from Products of Conception, Via Natural or Artificial Opening (ICD-10-PCS; 2022-07-21)
PROC: 0HQ9XZZ Repair Perineum Skin, External Approach (ICD-10-PCS; 2022-07-21)
DX: O76 Abnormality in fetal heart rate and rhythm complicating labor and delivery (principal); E03.9 Hypothyroidism, unspecified; Z37.0 Single live birth; Z3A.38 38 weeks gestation of pregnancy; O32.0XX0 Maternal care for unstable lie, not applicable or unspecified; O99.284 Endocrine, nutritional and metabolic diseases complicating childbirth; Z79.899 Other long term (current) drug therapy; O69.82X0 Labor and delivery complicated by other cord entanglement, without compression, not applicable or unspecified; O70.0 First degree perineal laceration during delivery

== ENCOUNTER → 2022-08-27 | Outpatient (CLI) | payer BC ==
[~2022-08-27] MED LIST changes: +IBUP-1022 PO
[2022-08-27 15:57] LABS: BASO % 0.3 % (0.0-1.0); EOS # 0.1 10^3/uL (0.0-0.5); EOS % 0.9 % (0.0-3.0); HEMATOCRIT 37.9 % (36.0-47.0); HEMOGLOBIN 11.9 g/dl (12.0-15.5); LYMPH # 1.3 10^3/uL (1.5-5.0); LYMPH % 19.6 % (24.0-44.0); MEAN CORPUSCULAR HEMOGLOBIN 29.8 pg (27.0-33.0); MEAN CORPUSCULAR HGB CONC 31.4 g/dl (32.0-36.5); MEAN CORPUSCULAR VOLUME 94.8 fl (80.0-96.0); MONO # 0.6 10^3/uL (0.0-0.8); MONO % 8.6 % (2.0-8.0); NEUTROPHILS # 4.5 10^3/uL (1.5-8.5); NEUTROPHILS % 70.1 % (36.0-66.0); PLATELET COUNT, AUTOMATED 200 10^3/uL (150-450); WHITE BLOOD COUNT 6.4 10^3/uL (4.0-10.0)
[2022-08-27 16:30] LABS: FREE T4 1.38 NG/DL (0.89-1.76); THYROID STIMULATING HORMONE 0.047 uIU/ML (0.55-4.78)
[2022-08-27 16:32] LABS: IRON (FE) 62 UG/DL (50-170)
[2022-08-27 16:34] LABS: TOTAL IRON BINDING CAPACITY 326 UG/DL (250-425); VITAMIN B12 LEVEL 630 PG/ML (211-911)
[2022-08-27 16:42] LABS: FOLATE > 24.00 NG/ML (>5.4)
== END ==
LOC: M PLALAB 13:24
PROVIDERS: ATTEND Nurse Practitioner Adult Health
DX: Z39.1 Encounter for care and examination of lactating mother (principal); D64.9 Anemia, unspecified

== ENCOUNTER → 2022-11-13 | Outpatient (CLI) | payer BC ==
[2022-11-13 16:08] LABS: THYROID STIMULATING HORMONE 0.737 uIU/ML (0.55-4.78)
[2022-11-13 16:09] LABS: FREE T4 1.26 NG/DL (0.89-1.76)
== END ==
LOC: M WUC 12:01
PROVIDERS: ATTEND Nurse Practitioner Adult Health
DX: E06.3 Autoimmune thyroiditis (principal); K21.9 Gastro-esophageal reflux disease without esophagitis

== ENCOUNTER → 2023-01-15 | Outpatient (REF) | payer BC ==
[2023-01-15 19:05] LABS: FREE T4 1.23 NG/DL (0.89-1.76); THYROID STIMULATING HORMONE 8.498 uIU/ML (0.55-4.78)
== END ==
LOC: M LAB REF 16:30
PROVIDERS: ATTEND Nurse Practitioner Adult Health
DX: E06.3 Autoimmune thyroiditis (principal)

== ENCOUNTER → 2023-01-29 | Outpatient (REF) | payer BC | LOC: M PLALAB 16:03 | PROVIDERS: ATTEND Advanced Practice Midwife | DX: Z12.4 Encounter for screening for malignant neoplasm of cervix (principal) | CPT/HCPCS: 87624; G0123 ==

== ENCOUNTER → 2023-03-05 | Outpatient (CLI) | payer BC ==
[2023-03-05 17:29] LABS: FREE T4 1.24 NG/DL (0.89-1.76); THYROID STIMULATING HORMONE 7.211 uIU/ML (0.55-4.78)
== END ==
LOC: M WUC 11:40
PROVIDERS: ATTEND Nurse Practitioner Adult Health
DX: E06.3 Autoimmune thyroiditis (principal)

== ENCOUNTER → 2023-03-27 | Outpatient (CLI) | payer BC | LOC: M RAD 07:40 | PROVIDERS: ATTEND Physician Assistant Medical | DX: R11.2 Nausea with vomiting, unspecified (principal) ==

== ENCOUNTER → 2023-05-09 | Outpatient (CLI) | payer BC ==
[~2023-05-09] MED LIST changes: +ALB2.5NEB INH; +ESOM40CA35 PO; +FAMO40TA3 PO; +LEVO150T7 PO; +SUCR1ORA PO; +VENTAER INH; +xyzal
[2023-05-09 17:21] LABS: FREE T4 1.37 NG/DL (0.89-1.76); THYROID STIMULATING HORMONE 3.06 uIU/ML (0.55-4.78)
== END ==
LOC: M WUC 11:28
PROVIDERS: ATTEND Nurse Practitioner Adult Health
DX: E06.3 Autoimmune thyroiditis (principal)

== ENCOUNTER → 2023-06-11 | Outpatient (CLI) | payer BC ==
[~2023-06-11] MED LIST changes: +E-Z-GAS II EFFERVESCENT PACKET (SODIUM BICARB./CITRIC ACID/SIMETHICONE) As Ordered ONE; +E-Z-HD 98% w/w 340GM SUSP BTL As Ordered ONE; +E-Z-PAQUE 96% w/w SUSP 176GM BTL As Ordered ONE
== END ==
LOC: M RAD 09:51
PROVIDERS: ATTEND Surgery
DX: K21.9 Gastro-esophageal reflux disease without esophagitis (principal)

== ENCOUNTER → 2023-07-16 | Outpatient (REF) | payer BC ==
[~2023-07-16] MED LIST changes: -E-Z-GAS II EFFERVESCENT PACKET (SODIUM BICARB./CITRIC ACID/SIMETHICONE) As Ordered ONE; -E-Z-HD 98% w/w 340GM SUSP BTL As Ordered ONE; -E-Z-PAQUE 96% w/w SUSP 176GM BTL As Ordered ONE
[2023-07-16 16:54] LABS: FREE T4 1.4 NG/DL (0.89-1.76); THYROID STIMULATING HORMONE 0.114 uIU/ML (0.55-4.78)
== END ==
LOC: M LABWUC 16:16
PROVIDERS: ATTEND Nurse Practitioner Adult Health
DX: E06.3 Autoimmune thyroiditis (principal)

== ENCOUNTER → 2023-09-12 | Outpatient (REF) | payer BC ==
[2023-09-12 17:23] LABS: FREE T4 1.49 NG/DL (0.89-1.76); THYROID STIMULATING HORMONE 0.278 uIU/ML (0.55-4.78)
== END ==
LOC: M LABWUC 16:29
PROVIDERS: ATTEND Nurse Practitioner Adult Health
DX: E06.3 Autoimmune thyroiditis (principal)

== ENCOUNTER → 2024-03-17 | Outpatient (CLI) | payer BC ==
[2024-03-17 18:44] LABS: FREE T4 1.58 NG/DL (0.89-1.76); THYROID STIMULATING HORMONE 0.846 uIU/ML (0.55-4.78)
== END ==
LOC: M WUC 11:17
PROVIDERS: ATTEND Nurse Practitioner Adult Health
DX: E06.3 Autoimmune thyroiditis (principal)

== ENCOUNTER → 2024-09-03 | Outpatient (REF) | payer BC ==
[2024-09-03 19:39] LABS: THYROID STIMULATING HORMONE 0.011 uIU/ML (0.55-4.78)
[2024-09-03 19:40] LABS: FREE T4 2.38 NG/DL (0.89-1.76)
== END ==
LOC: M LABWUC 16:24
PROVIDERS: ATTEND Nurse Practitioner Adult Health
DX: E06.3 Autoimmune thyroiditis (principal)

== ENCOUNTER → 2024-11-09 | Outpatient (REF) | payer BC ==
[2024-11-09 15:12] LABS: THYROID STIMULATING HORMONE 0.032 uIU/ML (0.55-4.78)
[2024-11-09 15:14] LABS: FREE T4 1.5 NG/DL (0.89-1.76)
== END ==
LOC: M LABWUC 14:27
PROVIDERS: ATTEND Nurse Practitioner Adult Health
DX: E06.3 Autoimmune thyroiditis (principal)

== ENCOUNTER → 2025-02-25 | Outpatient (REF) | payer BC ==
[2025-02-25 17:54] LABS: FREE T4 1.55 NG/DL (0.89-1.76)
== END ==
LOC: M LABWUC 17:10
PROVIDERS: ATTEND Nurse Practitioner Adult Health
DX: E06.3 Autoimmune thyroiditis (principal)

== ENCOUNTER → 2025-04-13 | Outpatient (CLI) | payer BC ==
[~2025-04-13] MED LIST changes: -IBUP-1022 PO; +IBUP600T42 PO
[2025-04-13 15:41] LABS: FREE T4 1.61 NG/DL (0.89-1.76)
== END ==
LOC: M WUC 12:14
PROVIDERS: ATTEND Nurse Practitioner Adult Health
DX: E06.3 Autoimmune thyroiditis (principal)